=== PATIENT | male | born 1990 | race African-American/Black ===

== ENCOUNTER 2020-02-21 08:49 | Emergency (ER) | payer OTHER ==
[~2020-02-21] VITALS: Ht 185.4 cm; Wt 100.0 kg
[2020-02-21] MEDS ORDERED: IBUPROFEN600 MG PO (10:39)
[2020-02-21 10:54] VITALS: BP 149/89
== END 2020-02-21 10:58 | disposition home or self-care (01) | DRG 914 ==
LOC: ED 08:49
DX: S59.901A Unspecified injury of right elbow, initial encounter (principal); M19.121 Post-traumatic osteoarthritis, right elbow; X50.3XXA Overexertion from repetitive movements, initial encounter; Y93.89 Activity, other specified; Y92.59 Other trade areas as the place of occurrence of the external cause; Y99.0 Civilian activity done for income or pay; Z96.89 Presence of other specified functional implants

== ENCOUNTER 2020-04-07 10:57 | Emergency (ER) | payer OTHER ==
[~2020-04-07] VITALS: Ht 185.4 cm; Wt 115.0 kg
[~2020-04-07 10:57] MED LIST: IBUPROFEN600 MG PO
[2020-04-07] MEDS ORDERED: AMOX/K CLAV875 M1 PO ×2 (13:01→13:26)
[2020-04-07] MEDS ORDERED: NO HOME MEDS (13:11)
[2020-04-07 13:38] VITALS: BP 143/81
== END 2020-04-07 13:38 | disposition home or self-care (01) | DRG 153 ==
LOC: ED 10:57
DX: J02.0 Streptococcal pharyngitis (principal); F17.200 Nicotine dependence, unspecified, uncomplicated; Z20.822 Contact with and (suspected) exposure to COVID-19

== ENCOUNTER 2020-06-01 | Emergency (ER) | payer SELFPAY ==
[~2020-06-01] MED LIST changes: +AMOX/K CLAV875 M1 PO; +NO HOME MEDS
[2020-06-01 21:53] LABS: HEMATOCRIT 37.3 % (39.0-50.0); HEMOGLOBIN 12.3 g/dl (14.0-18.0); IMMATURE GRANULOCYTES 0.1 % (0.0-5.0); MEAN CELL VOLUME 90.5 fL CALC (80.0-100.0); MEAN CORPUSCULAR HGB 29.9 pG CALC (26.0-32.0); NEUT# 4.07 thou/uL (1.82-7.42); RED BLOOD COUNT 4.12 mill/uL (4.70-6.10)
[2020-06-01 22:14] LABS: ALBUMIN 4.4 g/dL (3.2-5.0); ALKALINE PHOSPHATASE 55 u/l (38-126); ANION GAP 10 (6-22 (CALC)); BILIRUBIN, TOTAL 0.6 mg/dL (0.0-1.4); BUN 13 mg/dL (9-20); BUN/CREATININE RATIO 12 (12-20 (CALC)); CARBON DIOXIDE 25 mmol/l (22-30); CHLORIDE 104 mmol/l (95-108); ETHYL ALCOHOL 0 mg/dl (0-30); GFR > 60 ML/MIN (>=60 (CALC)); GFR FOR AFR.AMER. > 60 ML/MIN (>=60 (CALC)); LIPASE 68 u/l (23-300); POTASSIUM 3.5 mmol/l (3.5-5.1); SGOT/AST 37 u/l (17-59); SODIUM 136 mmol/l (137-146); TOTAL PROTEIN 8.4 g/dL (6.3-8.2)
[2020-06-02] MEDS ORDERED: IBUPROFEN600 MG PO (00:42)
== END 2020-06-02 01:40 | disposition home or self-care (01) | DRG 313 ==
DX: R07.89 Other chest pain (principal); F17.200 Nicotine dependence, unspecified, uncomplicated; Z20.822 Contact with and (suspected) exposure to COVID-19

== ENCOUNTER 2020-06-04 | Emergency (ER) | payer SELFPAY ==
[2020-06-04 18:29] LABS: HEMOGLOBIN 12.1 g/dl (14.0-18.0); IMMATURE GRANULOCYTES 0.1 % (0.0-5.0); MEAN CELL VOLUME 93.4 fL CALC (80.0-100.0); MEAN CORPUSCULAR HGB 29.7 pG CALC (26.0-32.0); MEAN CORPUSCULAR HGB CONC 31.8 g/dL CAL (32.0-36.0); NEUT# 4.19 thou/uL (1.82-7.42); RED BLOOD COUNT 4.07 mill/uL (4.70-6.10)
[2020-06-04 18:59] LABS: ALBUMIN 4.2 g/dL (3.2-5.0); ALKALINE PHOSPHATASE 51 u/l (38-126); ANION GAP 8 (6-22 (CALC)); BILIRUBIN, TOTAL 0.5 mg/dL (0.0-1.4); BUN 10 mg/dL (9-20); BUN/CREATININE RATIO 10 (12-20 (CALC)); CARBON DIOXIDE 24 mmol/l (22-30); CHLORIDE 107 mmol/l (95-108); CREATININE 0.9 mg/dL (0.7-1.3); GFR > 60 ML/MIN (>=60 (CALC)); GFR FOR AFR.AMER. > 60 ML/MIN (>=60 (CALC)); LIPASE 115 u/l (23-300); POTASSIUM 3.9 mmol/l (3.5-5.1); SGOT/AST 29 u/l (17-59); SODIUM 136 mmol/l (137-146)
== END 2020-06-04 19:55 | disposition home or self-care (01) | DRG 313 ==
DX: R07.89 Other chest pain (principal); F06.4 Anxiety disorder due to known physiological condition; F17.290 Nicotine dependence, other tobacco product, uncomplicated

== ENCOUNTER 2020-12-27 11:01 | Emergency (ER) | payer SELFPAY | END 2020-12-27 11:40 | disposition left against medical advice (07) | DRG 951 | LOC: ED 11:01 → LWOBS 11:39 | DX: Z53.21 Procedure and treatment not carried out due to patient leaving prior to being seen by health care provider (principal) ==